=== PATIENT | male | born 1985 | race Two or more races ===

== ENCOUNTER 2016-11-11 10:12 | Emergency (ER) | payer MEDICAID ==
[~2016-11-11] VITALS: Ht 193 cm; Wt 132.4 kg
[2016-11-11 10:23] VITALS: BP 128/80
[2016-11-11] MEDS ORDERED: METHOCARBAMOL 750 MG TABLET PO ONE (11:00)
[2016-11-11] MEDS ORDERED: KETOROLAC 30 MG/1 ML IM ONE (11:00)
[2016-11-11] MEDS ORDERED: KETOROLAC 30 MG/1 ML ONE (11:07)
[2016-11-11] MEDS ORDERED: METHOCARBAMOL 750 MG TABLET ONE (11:07)
== END 2016-11-11 12:06 | disposition home or self-care (01) ==
LOC: ED 11:50
DX: S39.012A Strain of muscle, fascia and tendon of lower back, initial encounter (principal); G89.29 Other chronic pain; M54.5 Low back pain; X50.3XXA Overexertion from repetitive movements, initial encounter; Y93.02 Activity, running; Y99.8 Other external cause status; Y92.89 Other specified places as the place of occurrence of the external cause
CPT/HCPCS: 72110; 96372; 99284; J1885

== ENCOUNTER 2017-03-13 05:58 | Emergency (ER) | payer MEDICAID ==
[~2017-03-13] VITALS: Ht 172.7 cm; Wt 133.5 kg
[2017-03-13 06:01] VITALS: BP 154/95
[2017-03-13] MEDS ORDERED: MAALOX/HYOSCYAMINE/LIDOCAINE 45 ML BTL PO ONE (06:30)
[2017-03-13] MEDS ORDERED: MAALOX/HYOSCYAMINE/LIDOCAINE 45 ML BTL ONE (06:42)
== END 2017-03-13 07:37 | disposition home or self-care (01) ==
LOC: ED 07:31
DX: K21.9 Gastro-esophageal reflux disease without esophagitis (principal)
CPT/HCPCS: 71020; 93005; 99284